=== PATIENT | male | born 1955 | race African-American/Black ===

== ENCOUNTER → 2018-05-25 | Outpatient (CLI) | payer BC ==
[~2018-05-25] MED LIST: ASPIR 8181 MG PO; ATENOLOL PO; JARDIANCE PO; LISINOPRIL PO; METFORMIN HCL500 MG PO
--- NOTE | 2018-05-25 14:27 | Diagnostic Imaging Report ---
EXAMINATION: CHEST 2 VIEWS INDICATION: Productive cough. Bronchitis COMPARISON: None FINDINGS: TUBES and LINES: None. LUNGS: Lungs are well inflated. Perihilar peribronchial hazy opacity with minimal linear density in the left lower lung could be due to bronchitis/viral pneumonia. No consolidated pneumonia. PLEURA: No pleural effusion or pneumothorax. HEART AND MEDIASTINUM: The cardiomediastinal silhouette is unremarkable. BONES AND SOFT TISSUES: No acute osseous lesion. Soft tissues are unremarkable. UPPER ABDOMEN: No free air under the diaphragm. IMPRESSION: Perihilar peribronchial hazy opacity with minimal linear density in the left lower lung could be due to bronchitis/viral pneumonia. No consolidated pneumonia. Signed by: Dr. Kelechi Arana M.D. on 05/25/2018 2:24 PM
== END ==
LOC: RAD 13:50
PROVIDERS: ATTEND Family Medicine
DX: J40 Bronchitis, not specified as acute or chronic (principal)
CPT/HCPCS: 71046

== ENCOUNTER → 2018-07-14 | Outpatient (CLI) | payer BC ==
--- NOTE | 2018-07-14 13:37 | Diagnostic Imaging Report ---
EXAMINATION: PA and lateral views of the chest. COMPARISON: None CLINICAL HISTORY: Bronchitis DISCUSSION: Lungs are well-inflated. Patchy airspace disease in the left lower lobe with partial loss of the hemidiaphragmatic contour. No pleural effusion or pneumothorax. Cardiomediastinal contour and pulmonary vasculature are otherwise within normal limits. No acute osseous abnormality. IMPRESSION: Patchy airspace disease in the left lower lobe may reflect atelectasis or developing pneumonia in the correct clinical context. Signed by: Dr. Thigao Zheng M.D. on 07/14/2018 1:34 PM
== END ==
LOC: RAD 12:58
PROVIDERS: ATTEND Family Medicine
DX: J40 Bronchitis, not specified as acute or chronic (principal)
CPT/HCPCS: 71046

== ENCOUNTER → 2018-11-24 | Outpatient (CLI) | payer BC ==
--- NOTE | 2018-11-24 13:23 | Diagnostic Imaging Report ---
EXAMINATION: CHEST 2 VIEWS INDICATION: Bronchitis. COMPARISON: Chest radiograph 07/14/2018. FINDINGS: TUBES and LINES: None. LUNGS: Lungs are not well inflated. Mild patchy bibasilar opacities, likely atelectasis. There is no evidence of pneumonia or pulmonary edema. PLEURA: No pleural effusion or pneumothorax. HEART AND MEDIASTINUM: The cardiomediastinal silhouette is unremarkable. BONES AND SOFT TISSUES: No acute osseous abnormality. UPPER ABDOMEN: No free air under the diaphragm. IMPRESSION: No acute radiographic abnormality. Signed by: Dr. Nash Nieves MD on 11/24/2018 1:19 PM
== END ==
LOC: RAD 11:54
PROVIDERS: ATTEND Family Medicine
DX: J40 Bronchitis, not specified as acute or chronic (principal)
CPT/HCPCS: 71046

== ENCOUNTER → 2022-09-30 | Outpatient (CLI) | payer MEDICARE | LOC: CT 13:58 | PROVIDERS: ATTEND Family Medicine | DX: R10.9 Unspecified abdominal pain (principal); E11.9 Type 2 diabetes mellitus without complications | CPT/HCPCS: 74176 ==